=== PATIENT | female | born 1995 | race American Indian/Alaskan Native ===

== ENCOUNTER 2016-10-22 23:00 | Emergency (ER) | payer OTHER ==
[2016-10-23 00:04] LABS: Basophils % (Auto) 0.6 % (0.0-1.8); Eosinophils % (Auto) 0.5 % (0.0-4.3); Hematocrit 41.4 % (30.3-42.9); Hemoglobin 14.2 gm/dl (10.1-14.3); Mean Corpuscular HGB Conc 34 % (30-34); Mean Corpuscular Hemoglobin 29 pg (28-32); Mean Corpuscular Volume 85 fl (79-97); Platelet Count 237 K/mm3 (140-440); White Blood Count 6.8 K/mm3 (4.5-11.0)
[2016-10-23 00:19] LABS: Alanine Aminotransferase 22 units/L (7-56); Albumin 4.5 g/dL (3.9-5); Albumin/Globulin Ratio 1.6 %; Alkaline Phosphatase 37 units/L (35-129); BUN/Creatinine Ratio 11.42; Bilirubin,Total 1.6 mg/dL (0.1-1.2); Blood Urea Nitrogen 8 mg/dL (7-17); Calcium 9.5 mg/dL (8.4-10.2); Carbon Dioxide 24 mmol/L (22-30); Chloride 95.2 mmol/L (98-107); Glucose 85 mg/dL (65-100); Potassium 3.7 mmol/L (3.6-5.0); Sodium 135 mmol/L (137-145); Total Protein 7.4 g/dL (6.3-8.2)
[2016-10-23 00:25] LABS: Anion Gap 20 mmol/L
[2016-10-23 01:09] LABS: Bacteria,Urine 1+ /HPF (Negative); Bilirubin,Urine NEG (Negative); Blood,Urine SM (Negative); Ketones,Urine 80 mg/dL (Negative); Leukocyte Esterase,Urine LG (Negative); Mucus,Urine 1+ /HPF; Nitrite,Urine NEG (Negative)
[2016-10-23] MEDS ORDERED: NACL 0.9% 1000 ML 1,000 ML IV ONE (10:52)
--- NOTE | 2016-10-23 10:58 | Emergency Department Report ---
ED General Adult HPI - General Chief complaint: Syncope Stated complaint: SYNCOPAL EPISODE Time Seen by Provider: 10/23/16 09:31 Source: patient, family Mode of arrival: Wheelchair Limitations: No Limitations - History of Present Illness Initial comments: 20-year-old female presents to the emergency department with multiple complaints. Patient is reporting generalized weakness and decreased appetite over the past 2 days. She states she been having achy lower back pain and urinary frequency. Patient states that she began feeling dizzy this morning after using the bathroom and had a near syncopal episode. Patient did not lose consciousness. Patient also states that approximately one week ago she was diagnosed with a respiratory virus by her primary physician. There are no other complaints. -: Gradual, days(s) (2) Location: back Radiation: non-radiation Severity scale (0 -10): 4 Quality: aching Consistency: constant Improves with: none Worsens with: none Associated Symptoms: loss of appetite, weakness - Related Data Previous Rx's Medication Instructions Recorded Last Taken Type Nitrofurantoin [place]/M-Cryst 100 mg PO Q12HR #10 capsule 10/23/16 Unknown Rx [Macrobid CAP] Allergies Allergy/AdvReac Type Severity Reaction Status Date / Time apple Allergy Angioedema Verified 10/22/16 23:15 Latex, Natural Rubber Allergy Rash Verified 10/22/16 23:15 Penicillins Allergy Unknown Verified 10/22/16 23:16 ED Review of Systems ROS: Stated complaint: SYNCOPAL EPISODE Other details as noted in HPI Comment: All other systems reviewed and negative Constitutional: weakness Cardiovascular: syncope (lightheadedness, no loss of consciousness) Genitourinary: frequency Musculoskeletal: back pain ED Past Medical Hx - Past Medical History Previous Medical History?: Yes Additional medical history: HEART MURMUR - Surgical History Past Surgical History?: Yes Additional Surgical History: TONSILS - Family History Family history: no significant - Social History Smoking Status: Current Every Day Smoker Substance Use Type: Alcohol, Marijuana - Medications Home Medications: Home Medications Medication Instructions Recorded Confirmed Last Taken Type Nitrofurantoin [place]/M-Cryst 100 mg PO Q12HR #10 capsule 10/23/16 Unknown Rx [Macrobid CAP] ED Physical Exam - General Limitations: No Limitations General appearance: alert, in no apparent distress - Head Head exam: Present: atraumatic, normocephalic - Eye Eye exam: Present: normal appearance, PERRL, EOMI - ENT ENT exam: Present: normal exam, normal orophraynx, mucous membranes moist - Neck Neck exam: Present: normal inspection, full ROM. Absent: tenderness - Respiratory Respiratory exam: Present: normal lung sounds bilaterally. Absent: respiratory distress - Cardiovascular Cardiovascular Exam: Present: regular rate, normal rhythm, normal heart sounds - GI/Abdominal GI/Abdominal exam: Present: soft, normal bowel sounds. Absent: distended, tenderness - Extremities Exam Extremities exam: Present: normal inspection, full ROM. Absent: tenderness - Back Exam Back exam: Present: normal inspection, full ROM. Absent: tenderness - Neurological Exam Neurological exam: Present: alert, oriented X3. Absent: motor sensory deficit - Skin Skin exam: Present: warm, dry, intact ED Course Vital Signs 10/22/16 10/23/16 10/23/16 23:16 04:20 06:36 Temperature 98.4 F Pulse Rate 115 H 89 Respiratory 18 20 16 Rate Blood Pressure 117/77 113/76 O2 Sat by Pulse 100 97 99 Oximetry ED Medical Decision Making - Lab Data Result diagrams: 10/22/16 23:43 10/22/16 23:43 - EKG Data -: EKG Interpreted by Hi EKG shows normal: sinus rhythm, axis, intervals, QRS complexes, ST-T waves Rate: normal - EKG Data When compared to previous EKG there are: previous EKG unavailable Interpretation: normal EKG - Medical Decision Making Laboratory results reviewed and discussed with the patient. Giving the patient IV fluids. Patient will be discharged home on oral antibiotic to follow up with her primary care physician. - Differential Diagnosis dehydration, UTI, near syncope Critical care attestation.: If time is entered above; I have spent that time in minutes in the direct care of this critically ill patient, excluding procedure time. ED Disposition Clinical Impression: Acute cystitis without hematuria, Dehydration, mild Disposition: DISCHARGED TO HOME OR SELFCARE Is pt being admited?: No Condition: Stable Instructions: Urinary Tract Infection in Women (ED) Prescriptions: Nitrofurantoin [place]/M-Cryst [Macrobid CAP] 100 mg PO Q12HR #10 capsule Referrals: PRIMARY CARE, [Primary Care Provider] - 3-5 Days Time of Disposition: 11:00
[2016-10-23 12:28] VITALS: BP 122/80
== END 2016-10-23 12:00 | disposition home or self-care (01) ==
LOC: ED 23:00
DX: N30.01 Acute cystitis with hematuria (principal); E86.0 Dehydration; F17.200 Nicotine dependence, unspecified, uncomplicated; F12.10 Cannabis abuse, uncomplicated
CPT/HCPCS: 36415; 80053; 81001; 81025; 85025; 93005; 93010; 96360; 99283; J7030